=== PATIENT | female | born 2000 | race Caucasian/White ===

== ENCOUNTER 2024-08-01 15:41 | Inpatient (IN) | payer OTHER, SELFPAY ==
[2024-08-01] VITALS (11 sets, daily range): BP systolic 124–148; BP diastolic 73–90; BMI 51.4
[2024-08-01 09:53] LABS: % Basophils 0.6 % (0-2); % Eosinophils 0.2 % (0-6); % Immature Granulocytes 0.3 % (0-0.5); % Neutrophils 85.9 % (42.2-75.2); Absolute Basophils 0.1 10^3/uL (0-0.2); Absolute Lymphocytes 0.9 10^3/uL (1.2-3.4); Absolute Monocytes 0.4 10^3/uL (0.1-0.6); Absolute Neutrophils 8.4 10^3/uL (1.4-6.5); Hematocrit 38.3 % (37.0-47.0); Hemoglobin 13.4 g/dL (12.0-16.0); Mean Corpuscular Hgb 29.8 pg (27.0-31.0); Mean Corpuscular Volume 85.1 fL (81.0-99.0); Mean Platelet Volume 9.1 fL (7.4-10.4); Nucleated Red Blood Cells % 0 %; Platelet Count 224 10^3/uL (130-400); Red Cell Dist. Width 12.2 % (11.5-14.5); White Blood Cell Count 9.7 10^3/uL (4.8-10.8)
[2024-08-01 10:03] LABS: COVID-19 Antigen Negative (Negative)
[2024-08-01 10:19] LABS: ALT (SGPT) 17 U/L (0-35); AST (SGOT) 19 U/L (14-36); Albumin 4.2 g/dl (3.5-5.0); Alkaline Phosphatase 54 U/L (38-126); Blood Urea Nitrogen 8 mg/dl (7-17); Calcium 9.3 mg/dl (8.4-10.2); Carbon Dioxide 19 mmol/L (22-30); Chloride 109 mmol/L (98-107); Estimated Creatinine Clearance > 125 ml/min; Glucose 123 mg/dl (70-99); Potassium 4.2 mmol/L (3.5-5.1); Sodium 138 mmol/L (135-145); Total Bilirubin 0.5 mg/dl (0.2-1.3); Total Protein 7.1 g/dl (6.3-8.2); eGFR > 60.00
--- NOTE | 2024-08-01 10:45 | ED.GENMED ---
History of Present Illness
<Marianela Hunt, LEAN PROCESS DEPLOYMENT CONSULTANT - Last Filed: 08/01/24 17:23>
General
Chief Complaint: Breathing Problem
Source: patient
Exam Limitations: none
Time Seen by Provider: 08/01/24 10:38
Nursing documentation reviewed up to this point in time: agreed with
History of Present Illness
History of Present Illness:
23-year-old female with history of asthma presents for increasing cough and shortness of breath over the past 6 days. She denies fever or chills. She has felt nauseous and did vomit twice, the last emesis was 3 AM today. She denies diarrhea. She
states her coworkers are sick with URI's. She has been taking her Singulair and Albuterol MDI with no improvement. No recent travel.
Past History
<Marianela Hunt, LEAN PROCESS DEPLOYMENT CONSULTANT - Last Filed: 08/01/24 17:23>
Past History
ED Past Medical History: Asthma
ED Past Surgical History: None
Social History
Tobacco: Smoker
Alcohol: None
Personal: Single
Living: with roommate
Employment: Employed
Review of Systems
<Marianela Hunt, LEAN PROCESS DEPLOYMENT CONSULTANT - Last Filed: 08/01/24 17:23>
Review of Systems
Allergies reviewed?: Yes
All Other Systems: ROS reviewed and negative except as documented in HPI and ROS
Constitutional: Denies fever or chills
EENT: Denies sore throat
Respiratory: Reports cough and trouble breathing
Cardiac: Denies chest pain
ABD/GI: Reports nausea and vomiting; Denies abdominal pain or diarrhea
: Denies dysuria or difficulty voiding
Musculoskeletal: Reports no symptoms
Skin: Reports no symptoms
Neurological: Reports no symptoms
Phy Exam
<Marianela Hunt, LEAN PROC[employer] DEPLOYMENT CONSULTANT - Last Filed: 08/01/24 17:23>
Physical Exam
Physical Exam:
GENERAL: No acute distress. A&Ox3.
CONSTITUTIONAL: Afebrile.
EYES: clear, conjunctivae normal
ENMT: moist mucus membranes, Pharynx nl
RESPIRATORY: Regular respirations, nonlabored, lungs with mild scattered expiratory wheezes
CARDIOVASCULAR: Regular rate and rhythm, no murmurs, no rubs.
GI: Soft, nontender, normal BS
MUSCULOSKELETAL: Moves with ease. Well perfused.
SKIN: Warm, dry, pink
PSYCH: Normal mood and affect. Well kept, interactive and appropriate
NEUROLOGIC: Awake, alert and oriented. No focal neurological deficits
Course
<Marianela Hunt, LE[employer] PROC[employer] DEPLOYMENT CONSULTANT - Last Filed: 08/01/24 17:23>
Orders/Labs/Results
Orders:
Orders
08/01/24 09:32
Chest [CR Chest - 2 Views ] Urgent
Comment:
Reason For Exam: cough sob
08/01/24 09:40
COVID-19 Antigen Urgent
Source: Nasal Swab
Complete Blood Count/With Diff Urgent
Comprehensive Metabolic Panel Urgent
HCG, Serum Qualitative Screen Urgent
Comment: ADD ON
Influenza A+B Rapid Molecular Urgent
NAINA Source: Nasal Swab
Specimen Description:
08/01/24 10:45
Ipratropium/Albuterol Sulfate [Duoneb] 3 ml INH R NOW STA
Ondansetron Orally Disint [Zofran Odt (Orally Disintegrating)] 4 mg PO NOW STA
08/01/24 10:46
Dexamethasone [Decadron] 10 mg PO NOW STA
08/01/24 11:53
D-Dimer Urgent
08/01/24 12:44
Add On- LAB Urgent
Tests Added?: serum B-HCG, quanlitative
08/01/24 12:45
CT Chest PE Study Urgent
Comment:
Reason For Exam: sob/hypoxia
08/01/24 14:35
Azithromycin 500 mg/250 ml [Zithromax Infusion] 500 mg in 250 ml IV NOW
Dexamethasone Sod Phosphate [Decadron] 10 mg IV NOW STA
08/01/24 14:51
Admit/Transfer Patient As Directed
Co-Sign Provider:
Level of Care: Inpatient admission
Assign to:: IMU- Intermediate Care
Physician / Group: farrukh
Diagnosis: asthma exacerbation
Reason for Hospitalization: asthma exacerbation
Expected length of stay greater than two midnights?: Yes
ELOS- Estimated Length of Stay in days: 2
I certify the patient meets the requirements for IP care: Yes
Code Status As Directed
Resuscitation Status: Full Code
PRN Pain Medication Management As Directed
May give lesser potent ordered pain med per pt: Yes
preference::
Protocol:: Medication orders for pain may be administered in a
manner that supports deferring to patient preference
when the pt is:
- Requesting an ordered lesser potent pain medication.
Least to most potent pain medications are defined
as: acetaminophen < NSAID < tramadol < opioids
(morphine, oxycodone, hydromorphone).
- Requesting a lesser dose of the same medication IF
ORDERED.
- Requesting a less intrusive route of administration
if both routes are prescribed by the provider (PO <
IV).
08/01/24 15:03
PRN Pain Medication Management As Directed
May give lesser potent ordered pain med per pt: Yes
preference::
Protocol:: Medication orders for pain may be administered in a
manner that supports deferring to patient preference
when the pt is:
- Requesting an ordered lesser potent pain medication.
Least to most potent pain medications are defined
as: acetaminophen < NSAID < tramadol < opioids
(morphine, oxycodone, hydromorphone).
- Requesting a lesser dose of the same medication IF
ORDERED.
- Requesting a less intrusive route of administration
if both routes are prescribed by the provider (PO <
IV).
Abnormal Lab Results
08/01/24 08/01/24
09:40 11:53
Absolute Neuts (auto) 8.4 H 10^3/uL
(1.4-6.5)
Absolute Lymphs (auto) 0.9 L 10^3/uL
(1.2-3.4)
Neutrophils % 85.9 H %
(42.2-75.2)
Lymphocytes % 9.0 L %
(20.5-51.1)
D-Dimer 1.01 H ug/mlFEU
(0.00-0.50)
Chloride 109 H mmol/L
(98-107)
Carbon Dioxide 19 L mmol/L
(22-30)
Glucose 123 H mg/dl
(70-99)
08/01/24 09:40
08/01/24 09:40
Vital Signs
Initial and Last Documented VS:
Initial Vital Signs
Temp Pulse Resp BP Pulse Ox
98.3 F 101 20 148/90 94
08/01/24 09:27 08/01/24 09:27 08/01/24 09:27 08/01/24 09:27 08/01/24 09:27
Last Documented Vital Signs
Temp Pulse Resp BP Pulse Ox
98.3 F 98 26 124/80 96
08/01/24 09:27 08/01/24 15:45 08/01/24 15:45 08/01/24 15:00 08/01/24 16:51
Cellar Supervisor consulted with Physician
Cellar Supervisor consulted with physician?: Yes
Name of Physician Consulted: Ursulah
<Adan Romero MD - Last Filed: 08/01/24 17:28>
Orders/Labs/Results
Orders:
Orders
08/01/24 09:32
Chest [CR Chest - 2 Views ] Urgent
Comment:
Reason For Exam: cough sob
08/01/24 09:40
COVID-19 Antigen Urgent
Source: Nasal Swab
Complete Blood Count/With Diff Urgent
Comprehensive Metabolic Panel Urgent
HCG, Serum Qualitative Screen Urgent
Comment: ADD ON
Influenza A+B Rapid Molecular Urgent
NAINA Source: Nasal Swab
Specimen Description:
08/01/24 10:45
Ipratropium/Albuterol Sulfate [Duoneb] 3 ml INH R NOW STA
Ondansetron Orally Disint [Zofran Odt (Orally Disintegrating)] 4 mg PO NOW STA
08/01/24 10:46
Dexamethasone [Decadron] 10 mg PO NOW STA
08/01/24 11:53
D-Dimer Urgent
08/01/24 12:44
Add On- LAB Urgent
Tests Added?: serum B-HCG, quanlitative
08/01/24 12:45
CT Chest PE Study Urgent
Comment:
Reason For Exam: sob/hypoxia
08/01/24 14:35
Azithromycin 500 mg/250 ml [Zithromax Infusion] 500 mg in 250 ml IV NOW
Dexamethasone Sod Phosphate [Decadron] 10 mg IV NOW STA
08/01/24 14:51
Admit/Transfer Patient As Directed
Co-Sign Provider:
Level of Care: Inpatient admission
Assign to:: IMU- Intermediate Care
Physician / Group: farrukh
Diagnosis: asthma exacerbation
Reason for Hospitalization: asthma exacerbation
Expected length of stay greater than two midnights?: Yes
ELOS- Estimated Length of Stay in days: 2
I certify the patient meets the requirements for IP care: Yes
Code Status As Directed
Resuscitation Status: Full Code
PRN Pain Medication Management As Directed
May give lesser potent ordered pain med per pt: Yes
preference::
Protocol:: Medication orders for pain may be administered in a
manner that supports deferring to patient preference
when the pt is:
- Requesting an ordered lesser potent pain medication.
Least to most potent pain medications are defined
as: acetaminophen < NSAID < tramadol < opioids
(morphine, oxycodone, hydromorphone).
- Requesting a lesser dose of the same medication IF
ORDERED.
- Requesting a less intrusive route of administration
if both routes are prescribed by the provider (PO <
IV).
08/01/24 15:03
PRN Pain Medication Management As Directed
May give lesser potent ordered pain med per pt: Yes
preference::
Protocol:: Medication orders for pain may be administered in a
manner that supports deferring to patient preference
when the pt is:
- Requesting an ordered lesser potent pain medication.
Least to most potent pain medications are defined
as: acetaminophen < NSAID < tramadol < opioids
(morphine, oxycodone, hydromorphone).
- Requesting a lesser dose of the same medication IF
ORDERED.
- Requesting a less intrusive route of administration
if both routes are prescribed by the provider (PO <
IV).
Abnormal Lab Results
08/01/24 08/01/24
09:40 11:53
Absolute Neuts (auto) 8.4 H 10^3/uL
(1.4-6.5)
Absolute Lymphs (auto) 0.9 L 10^3/uL
(1.2-3.4)
Neutrophils % 85.9 H %
(42.2-75.2)
Lymphocytes % 9.0 L %
(20.5-51.1)
D-Dimer 1.01 H ug/mlFEU
(0.00-0.50)
Chloride 109 H mmol/L
(98-107)
Carbon Dioxide 19 L mmol/L
(22-30)
Glucose 123 H mg/dl
(70-99)
08/01/24 09:40
08/01/24 09:40
Vital Signs
Initial and Last Documented VS:
Initial Vital Signs
Temp Pulse Resp BP Pulse Ox
98.3 F 101 20 148/90 94
08/01/24 09:27 08/01/24 09:27 08/01/24 09:27 08/01/24 09:27 08/01/24 09:27
Last Documented Vital Signs
Temp Pulse Resp BP Pulse Ox
98.3 F 98 26 124/80 96
08/01/24 09:27 08/01/24 15:45 08/01/24 15:45 08/01/24 15:00 08/01/24 16:51
<Marianela Hunt, LE[employer] DEPLOYMENT CONSULTANT - Last Filed: 08/01/24 17:23>
MDM/Problems Addressed
Differential Diagnosis Includes:
Asthma, pneumonia, viral URI
MDM/Problems Addressed:
23-year-old female with history of asthma presents for increasing cough and shortness of breath over the past 6 days. She denies fever or chills. She has felt nauseous and did vomit twice, the last emesis was 3 AM today. She denies diarrhea. She
states her coworkers are sick with URI's. She has been taking her Singulair and Albuterol MDI with no improvement. No recent travel.
Afebrile, NAD
10:45 AM:
CBC normal
CMP normal
hCG negative
COVID-negative
Chest x-ray NAD
Patient states she has enough albuterol and Singulair, does not need refills
11:15
Pulse ox 90% after duoneb
Will check d dimer
1:00 PM: D-dimer elevated at 1.01
Patient pulse ox is fluctuating between 94% and is now 88%, placed on nasal O2 2 L/min
HR 110 sinus on monitor
12:30 p.m.
Pulse ox maintaining 88%-92% on 6 liters nasal O2
Resp in and placed on mid flow O2
2:15p.m
PE study neg for PE: IMPRESSION:
No findings to suggest pulmonary emboli within the main, right greater than left main pulmonary arteries.
At least in part as a result of some respiration/motion artifact, evaluation of the more peripheral pulmonary arterial branches, particularly in the lower lobes limited and small more peripheral pulmonary emboli cannot be excluded.
Overall prominent pulmonary interstitium with nodular opacities as well as some bilateral minor groundglass opacities most likely inflammatory/infectious.
Mild indeterminate mediastinal and bilateral hilar lymphadenopathy, most prominent left hilum.
No pneumothorax or pleural effusion.
Cannot exclude small anterior pericardial effusion.
2:40 p.m.
Plan: Admit: Bronchitis/asthma, acute resp failure with hypoxemia
Hospitalist notified of admission
Pulse ox 93% on 8L mid flow
Chronic conditions affecting care: Asthma
<Marianela Hunt [employer] DEPLOYMENT CONSULTANT - Last Filed: 08/01/24 17:23>
*Pulse Oximetry
Patient hypoxic: yes (Pulse ox 94% RA initially, vacillating between 94% and 88%, now 88%, O2 2 L NC applied)
*[facility] Interpretation
Rate: tachycardiac
Interpretation: normal
Heart Rate: 110
Rhythm: sinus
*Critical Care Note
Total Time (30-74mins, 75-104mins- exclusive of procedures): Not Applicable
ED Attending Note
<Marianela Hunt [employer] DEPLOYMENT CONSULTANT - Last Filed: 08/01/24 17:23>
-
Portions of this chart may have been created with voice recognition software.� Occasional wrong word or��sound alike� substitutions may have occurred due to the inherent limitations of voice recognition software.
<Adan Romero MD - Last Filed: 08/01/24 17:28>
ED Attending Note
Patient seen and examined by attending physician: Yes
ED Attending Note:
Patient with history of asthma, presents ED secondary to 6-day history of persistent cough and shortness of breath, despite using inhaler at home. Patient was evaluated urgent care center and subsequent referred to ED for evaluation secondary to
continued work of breathing. Denies chest pain. Denies diarrhea, but does report multiple episodes of vomiting. Patient states that there are number of people at work currently with URI symptoms. No recent travel or surgery. Denies pain.
Denies leg pain or swelling.
Physical Exam
General: mild distress, not acutely ill. afebrile
Head: nc/at. eomi
Neck: supple. normal range of motion.
Heart: s1/s2 regular rate and rhythm.
Lungs: mild respiratory distress. diminished breath sounds bilaterally
Abdomen: normal bowel sounds. not tender.
Neuro: alert and oriented x 3. no focal neurological deficits
Skin: no rash
Psychiatric: well kept. interactive and cooperative
Extremities: no edema. no calf tenderness.
During observation, patient noted to continue to experience tachypnea with desaturation despite supplemental oxygen. As such, decision made to place patient on mid flow oxygen and D-dimer ordered.
D-dimer mildly elevated. CT PE study ordered, which did not reveal acute pulm embolism, but diffuse interstitial inflammatory findings. History and exam likely consistent with asthmatic bronchitis causing hypoxia. As such, patient will be
admitted for further eval and treatment. IV antibiotics, IV Zithromax will be started.
Discharge Plan
Departure
Patient Disposition: Admit
Date of Disposition: 08/01/24
Time of Disposition: 14:35
Admit to: IMU
Presentation/result/management discussed w/ accepting MD/DO: Hospitalist
Condition: Fair
Discharge Problem:
Acute bronchitis, Acute respiratory failure with hypoxemia
Interventions
Interventions:
*Risk Screen - Suicide Last Done: 08/01/24 11:16
*General Assessment Last Done: 08/01/24 09:30
*Neglect/Abuse Screening Last Done: 08/01/24 09:30
*ED- Fall Risk Assessment Last Done: 08/01/24 11:14
*ED COVID-19 Vaccine History Last Done: 08/01/24 11:14
ED- Cardiac Assessment Last Done: 08/01/24 11:14
ED- Pulmonary Assessment Last Done: 08/01/24 11:14
[2024-08-01] MEDS: DUONEB 3 ML INH ×2 (10:55→19:37)
[2024-08-01] MEDS: ZOFRAN ODT (ORALLY DISINTEGRATING) 4 MG PO (10:55)
[2024-08-01] MEDS: DECADRON 10 MG PO (10:55)
[2024-08-01 12:15] LABS: D-Dimer 1.01 ug/mlFEU (0.00-0.50)
[2024-08-01 13:33] LABS: HCG, Serum Qualitative Screen Negative
[2024-08-01] MEDS: DECADRON 10 MG IV (14:45)
[2024-08-01] MEDS: ZITHROMAX INFUSION 250 IV (14:45)
--- NOTE | 2024-08-01 14:54 | HPS.HSE ---
Addendum entered and electronically signed by Felipe Mcintosh MD 08/01/24 15:04:
Patient with history of anxiety/depression. Continue home medications.
Patient currently on 15 L mid flow and may require high flow.
Original Note:
Family Physician
-
Family Physician: KEILA Méndez
Chief Complaint
-
shortness of breath
History of Present Illness
23-year-old female past medical history of asthma presenting with cough and shortness of breath over the past 6 days. She had coworkers with upper respiratory symptoms. Patient herself has some sore throat and bodyaches and chills early on during
the course of her symptoms. She had a lot of wheezing. She had 2 episodes of vomiting most recently this morning. Denies diarrhea.
She has been taking Singulair and albuterol MDI without improvement. No recent travel.
Denies smoking or alcohol use.
Medical History
Past Medical History
Past Medical History: Reports Other (asthma )
Past Surgical History: Reports None
Social History
Tobacco: Non-smoker
Alcohol: None
Drug: None
Family History
Family History: Not pertinent
Allergies / Home Medications
Allergies reflects when Allergies were last updated in [facility].
Home Medications with original date entered in [employer]
Allergy/Medication List:
Allergies
Allergy/AdvReac Type Severity Reaction Status Date / Time
amoxicillin (Amoxicillin) Allergy 'little Verified 12/06/12 18:13
bit' of a
rash
Home Medications
albuterol sulfate 2.5 mg/3 mL (0.083 %) solution for nebulization 3 ml inhalation PRN SOB 11/05/08
albuterol sulfate 90 mcg/actuation aerosol inhaler 8.5 gm IH PRN PRN SOB 11/05/08
fluticasone propionate 110 mcg/actuation HFA aerosol inhaler (Flovent) 2 puff inhalation DAILYPRN PRN SOB and allergy symptoms 11/05/08
Review of Systems
-
History Source: Patient
A 12 point ROS was completed and negative except as noted: Yes
Constitutional: Reports No Symptoms
EENT: Reports No Symptoms
Respiratory: Reports See HPI
Cardiac: Reports No Symptoms
Abdomen/GI: Reports No Symptoms
: Reports No Symptoms
Musculoskeletal: Reports No Symptoms
Skin: Reports No Symptoms
Neurological: Reports No Symptoms
Endocrine: Reports No Symptoms
Hematologic/Lymphatic: Reports No Symptoms
Psych: Reports No Symptoms
Physical Exam
Vital Signs
Vital Signs
Temp Pulse Resp BP Pulse Ox
98.3 F 98 23 129/83 90
08/01/24 09:27 08/01/24 14:30 08/01/24 14:30 08/01/24 14:06 08/01/24 14:30
Physical Exam
General: Well Developed, Well Nourished and No Apparent Distress
HEENT: NormoCephalic, Moist mucous membranes and Atraumatic
Respiratory: Clear
Cardiac: S1/S2 and Regular Rhythm; No Murmur or Rub
GI: Soft, Non Tender, Non Distended and Normal Bowel Sounds; No Organomegaly
Rectal: Deferred by Provider
Musculoskeletal: No Clubbing, No Cyanosis and No Edema
Skin: No Rash
Neuro: Nonfocal/grossly intact
Laboratory Results
-
08/01/24 09:40
08/01/24 09:40
Laboratory Results
Total Bilirubin 0.5 mg/dl (0.2-1.3) 08/01/24 09:40
AST 19 U/L (14-36) 08/01/24 09:40
ALT 17 U/L (0-35) 08/01/24 09:40
Alkaline Phosphatase 54 U/L (38-126) 06/15/25 09:40
Data Reviewed
-
Lab Data: Labs Reviewed by me
Old Records: Reviewed
Impression/Plan
-
IMPRESSION:
PLAN:
# Acute asthma exacerbation secondary to viral URI
-CT PE shows no pulmonary embolism, prominent pulmonary interstitium with nodular opacities as well as bilateral minor groundglass opacities likely inflammatory/infectious
- DuoNebs every 6 hours
- Dexamethasone 4 mg every 12
- Continue Singulair
# Bilateral nodular opacities likely viral pneumonia
-COVID and influenza negative
- Ceftriaxone/azithromycin
Full code
DVT prophylaxis�heparin
Regular diet
--- NOTE | 2024-08-01 18:47 | PTCARENOTE ---
Admitted to 3354, IMU monitors intact. SR /ST 90s 96% on HFO2 45L/ 60%. PO diet given.
[2024-08-01] MEDS: DUONEB INH (19:37)
[2024-08-01] MEDS: HEPARIN 5000 UNITS SC (20:05)
[2024-08-01] MEDS: ROCEPHIN 1000 MG IV (20:05)
[2024-08-01] MEDS: STERILE WATER FOR INJECTION 10 ML IV (20:05)
[2024-08-01] MEDS: BUSPAR PO (20:06)
--- NOTE | 2024-08-01 20:27 | PTCARENOTE ---
Received pt at change of shift. Admission completed. AAOx3. HFNC in place at 45L 60%. Lungs with insp/exp wheeze and diminished throughout. Dyspneic at rest with labored respirations. Pt very diaphoretic but offers no complaints of
dizziness/nausea. BP 125/90 HR 88 pulse ox 96%. Call deal within reach.
[2024-08-01] MEDS: BUSPAR 10 MG PO (21:56)
[2024-08-01] MEDS: SINGULAIR 10 MG PO (21:56)
[2024-08-01] MEDS: NON-FORMULARY ITEM 1 TABLET PO (22:28)
[2024-08-01] MEDS: MORPHINE SULFATE 2 MG IV (23:10)
--- NOTE | 2024-08-01 23:13 | PTCARENOTE ---
Pt WOB significantly increased and pulse ox dropped to 88%. RT at bedside and increased pt high flow to 100%. Notified CASH REGISTER BALANCER. 1x dose of Morphine ordered and administered for WOB (see MAR).
[2024-08-02] VITALS (11 sets, daily range): BP systolic 115–144; BP diastolic 66–98
[2024-08-02] MEDS: DECADRON 4 MG IV (05:34)
[2024-08-02 06:08] LABS: % Basophils 0.2 % (0-2); % Immature Granulocytes 0.5 % (0-0.5); % Lymphocytes 7.3 % (20.5-51.1); % Monocytes 4.2 % (1.7-9.3); % Neutrophils 87.8 % (42.2-75.2); Absolute Immature Granulocytes 0.1 10^3/uL (0-0.05); Absolute Lymphocytes 1.4 10^3/uL (1.2-3.4); Absolute Monocytes 0.8 10^3/uL (0.1-0.6); Absolute Neutrophils 16.4 10^3/uL (1.4-6.5); Hematocrit 39.5 % (37.0-47.0); Hemoglobin 13.6 g/dL (12.0-16.0); Mean Corp Hgb Conc. 34.4 g/dL (33.0-37.0); Mean Corpuscular Hgb 29.6 pg (27.0-31.0); Mean Corpuscular Volume 85.9 fL (81.0-99.0); Mean Platelet Volume 9.6 fL (7.4-10.4); Nucleated Red Blood Cells % 0 %; Platelet Count 247 10^3/uL (130-400); Red Cell Dist. Width 12.5 % (11.5-14.5); White Blood Cell Count 18.7 10^3/uL (4.8-10.8)
[2024-08-02 06:34] LABS: ALT (SGPT) 17 U/L (0-35); AST (SGOT) 21 U/L (14-36); Albumin 4.3 g/dl (3.5-5.0); Alkaline Phosphatase 48 U/L (38-126); Blood Urea Nitrogen 10 mg/dl (7-17); Calcium 9.4 mg/dl (8.4-10.2); Carbon Dioxide 20 mmol/L (22-30); Chloride 108 mmol/L (98-107); Estimated Creatinine Clearance > 125 ml/min; Glucose 141 mg/dl (70-99); Potassium 4.3 mmol/L (3.5-5.1); Sodium 139 mmol/L (135-145); Total Bilirubin 0.5 mg/dl (0.2-1.3); Total Protein 7.4 g/dl (6.3-8.2); eGFR > 60.00
[2024-08-02] MEDS: DUONEB 3 ML INH ×4 (07:41→19:51)
--- NOTE | 2024-08-02 08:51 | CON.PUL ---
Consultation
Consultation Request
Date/Time Consultation Requested: 08/02/2024
Date/Time Consultation Performed: 08/02/2024
Requesting Provider: Jose C Zamorano
Performing Provider: Laure Grossman
Reason for Consultation: Asthma
Medical History
-
Chief Complaint: Shortness of breath
History of Present Illness:
Patient is a 23-year-old female with known history of asthma who had presented to the hospital with cough and shortness of breath going on for almost 1 week. Patient does report some sick contacts with upper respiratory tract symptoms. Her
symptoms started with some sore throat and later progressed to cough and wheezing. She also had some posttussive vomiting. Patient at home takes albuterol as needed and Singulair and she has been using albuterol frequently without much improvement.
Patient reports known history of asthma since childhood. Typical triggers appear to be nighttime, cold weather, exposure to pollen and other animals 4. Patient used to be on Advair in the past and lately has not been on any inhaled corticosteroid
and uses montelukast at night and as needed albuterol only.
Past Medical History: Reports Other (asthma )
Past Surgical History: Reports None
Social History
Tobacco: Non-smoker
Alcohol: None
Drug: None
Family History
Family History: Not pertinent
Allergies / Home Medications
Allergies
Allergy/AdvReac Type Severity Reaction Status Date / Time
amoxicillin (Amoxicillin) Allergy 'little Verified 12/06/12 18:13
bit' of a
rash
Home Medications
�Medication �Instructions �Recorded �Confirmed �Last Taken �Type
albuterol sulfate 90 mcg/actuation 2 inh inhalation R Q4HPRN PRN sob 08/01/24 08/01/24 08/01/24 History
aerosol inhaler
bupropion HCl 300 mg 24 hr tablet, 300 mg PO DAILY Mental 08/01/24 08/01/24 07/31/24 History
extended release Health/Anxiety
buspirone 10 mg tablet 10 mg PO TID 08/01/24 08/01/24 07/31/24 History
fluoxetine 40 mg capsule 40 mg PO DAILY Mental 08/01/24 08/01/24 07/31/24 History
Health/Anxiety
montelukast 10 mg tablet 10 mg PO DAILY Allergies 08/01/24 08/01/24 07/31/24 History
norgestimate 0.25 mg-ethinyl 1 tab PO DAILY 08/01/24 08/01/24 07/31/24 History
estradiol 0.035 mg tablet
(Estarylla)
Review of Systems
-
Hematologic/Lymphatic: Other (All 14 systems reviewed and negative except as stated above in the history of present illness.)
Vitals / Labs / Diagnostic Testing
Vital Signs
Temp Pulse Resp BP Pulse Ox
99.0 F 87 25 122/70 96
08/02/24 03:55 08/02/24 07:41 08/02/24 07:41 08/02/24 04:00 08/02/24 07:41
Lab Data
08/02/24 05:40
08/02/24 05:40
Microbiology
08/01/24 09:40 Nasal Swab Influenza Types A & B (ROYA) - Final
Negative for Influenza A & B, NAAT
Negative results must be combined with clinical observations
and patient history.
Nucleic Acid Amplification test (NAAT)performed on the
[employer] platform.
Diagnostic Testing:
Physical Exam
-
HEENT: Normocephalic
Cardiovascular: S1/S2
Respiratory: Wheeze (Bilateral mild end expiratory wheezing.) and Non-Labored Respirations
GI: Soft
Neurology: Awake and Oriented
Skin: Warm
General: Comfortable
Assessment
-
#1. Acute asthma exacerbation.
- Appears to have high Th2 asthma with elevated eosinophil count noted in the past. Eosinophil count, 0-600. Patient has not been on any inhaled corticosteroid at home lately
- Continue DuoNeb 4 times daily scheduled, add budesonide nebulized twice daily. IV Solu-Medrol 60 mg once at 5 PM today, switch to prednisone daily starting tomorrow morning
- Continue montelukast. Patient will need to be discharged on inhaled corticosteroid to prevent future flare.
- Recommend outpatient follow-up with pulmonary clinic for further workup and management.
#2. Multifocal nodular opacities with some groundglass changes, suspect multifocal pneumonia
- Influenza A, B, COVID-19 screen negative.
- Also noted mild mediastinal and hilar lymphadenopathy again likely reactive
- Follow-up on cultures, continue ceftriaxone and azithromycin for community-acquired pneumonia
- In view of vomiting earlier, these CT changes could be suggestive of aspiration also.
#3. Acute hypoxic respiratory failure.
- Secondary to above
- Currently on high flow nasal cannula, 75% FiO2, 45 L flow.
- Pulmonary embolism ruled out
- Continue to wean oxygen, keep saturations above 90%
#4. High pretest probability of underlying obstructive sleep apnea.
- Patient's BMI is 51, reported snoring at night and excessive fatigue during daytime.
- Will pursue outpatient sleep study for further evaluation
DVT prophylaxis, subcu heparin.
Total time spent on this consultation/encounter __65__ minutes which includes review of history, physical exam, medications, laboratory data, personal review of imaging, extensive review of outpatient records, discussion with care team and
respiratory therapy.
Data:
CT Chest 07/2024: No findings to suggest pulmonary emboli within the main, right greater than left main pulmonary arteries.
At least in part as a result of some respiration/motion artifact, evaluation of the more peripheral pulmonary arterial branches, particularly in the lower lobes limited and small more peripheral pulmonary emboli cannot be excluded.
Overall prominent pulmonary interstitium with nodular opacities as well as some bilateral minor groundglass opacities most likely inflammatory/infectious.
Mild indeterminate mediastinal and bilateral hilar lymphadenopathy, most prominent left hilum.
No pneumothorax or pleural effusion.
Cannot exclude small anterior pericardial effusion.
[2024-08-02] MEDS: PROZAC 40 MG PO (09:02)
[2024-08-02] MEDS: BUSPAR 10 MG PO ×3 (09:03→20:08)
[2024-08-02] MEDS: HEPARIN 5000 UNITS SC ×3 (09:03→23:40)
[2024-08-02] MEDS: MUCINEX 1200 MG PO ×2 (09:07→20:08)
[2024-08-02] MEDS: PULMICORT 0.5 MG INH ×2 (09:12→19:51)
--- NOTE | 2024-08-02 09:48 | W.PN.HOSP.TC ---
Today's Communication/Plan
-
see outlined plan below
Assessment / Plan
Assessment / Plan
Assessment:
Acute hypoxic respiratory failure
- on hi-flow
- wean as able
- pulm following
Acute asthma exacerbation
- continue IV steroids
- nebs QID and prn
- steroid inhalers BID
- continue Singulair
- OP Pulm f/u
Multifocal pneumonia mild mediastinal and hilar lymphadenopathy likely reactive
- Flu/Covid negative
- continue Rocephin/Azithromycin, day 2 for CAP coverage
Probable KAREN
- OP sleep study
Anxiety/Depression - continue home meds
DVT ppx: SC Heparin
Code: Full
Anticipated Discharge: > 48 hours
Subjective/Interval History
-
Date of Service: August 02, 2024
on Hi-sunitha
reports some improvement in wheezing
Objective Data
-
Labs:
Laboratory Results
08/02/24
05:40
WBC 18.7 H
Hgb 13.6
Hct 39.5
Plt Count 247
Sodium 139
Potassium 4.3
Chloride 108 H
Carbon Dioxide 20 L
BUN 10
Creatinine 0.6
Glucose 141 H
Calcium 9.4
Total Bilirubin 0.5
AST 21
ALT 17
Alkaline Phosphatase 48
Vital Signs:
Vital Signs
Temp Pulse Resp BP Pulse Ox
98.5 F 101 27 127/72 95
08/02/24 07:45 08/02/24 08:00 08/02/24 08:00 08/02/24 08:00 08/02/24 08:00
Physical Exam
-
General: No Apparent Distress
HEENT: Normocephalic and Atraumatic
Respiratory: Wheezes and Other (chest tightness)
Cardiac: Regular Rhythm and S1/S2
GI: Soft
Musculoskeletal: No Edema
Neuro: AO x 3
Psych: Calm
Data Reviewed
-
Total Time Spent with Patient (in minutes): 45
Labs: Labs Reviewed by me
--- NOTE | 2024-08-02 12:30 | CM ---
Patient with Hx asthma with Dx Acute asthma exacerbation, suspect pneumonia. High flow O2. Receiving IV Abx, IV Steroids. Per nurse; A/O, mobility - self.
Met with patient and her SO Shaheen;
the patient resides with Shaheen and 2 room mates in a 2 story townhouse with no outside steps, and 8 + 8 stairs to 2nd floor.
She was independent in ADLs and ambulation.
The patient has no DME or prior VN.
PCP - Noble Ray
Pharmacy - [facility]
Plan watch for respiratory needs at d/c.
Plan home.
[2024-08-02] MEDS: ZITHROMAX INFUSION 250 IV (13:48)
[2024-08-02] MEDS: SOLU-MEDROL PF 60 MG IV (17:08)
[2024-08-02] MEDS: ROCEPHIN 1000 MG IV (17:09)
[2024-08-02] MEDS: STERILE WATER FOR INJECTION 10 ML IV (17:09)
--- NOTE | 2024-08-02 19:20 | PTCARENOTE ---
Remains on high flow however RT weaned to 50L / 60% slowly today. Harsh cough at times- coughed up scant brownish phleghm with thin clear. OOB this pm feels good sitting up.
[2024-08-02] MEDS: SINGULAIR 10 MG PO (20:08)
[2024-08-02] MEDS: NON-FORMULARY ITEM 1 TABLET PO (21:26)
--- NOTE | 2024-08-02 21:42 | PTCARENOTE ---
Patient aaox3 since start of shift, able to make needs known. Denies pain. RN assist x1 oob to bsc, gait steady. Patient remains on Hi flow 50L at 60%, pox 96%. Lung sounds diminished throughout, continues with fine inspiratory and expiratory
wheeze, faint. Call deal within reach, will continue to monitor patient closely.
[2024-08-03] VITALS (11 sets, daily range): BP systolic 106–131; BP diastolic 58–76
--- NOTE | 2024-08-03 00:17 | W.PN.UPDATE ---
Update Note
Progress Note Update
SUPPLY ANALYST called. RN noted abnormal rhythm on the monitor, checked on patient. Patient without any new complaints.
Patient seen and evaluated. States she was turning to her right side before the RN came in to the room to check on her. She is with out any chest pain, palpitations, shortness of breath.
EKG noted. will do labs, stable VS
Artifact noted on the monitor.
--- NOTE | 2024-08-03 00:25 | RR ---
A Rapid Response was called on this patient, please see Rapid Response form.
--- NOTE | 2024-08-03 00:25 | PTCARENOTE ---
Rapid response called d/to cardiac rhythm. Cardiac rhythm appeared to be vfib, but with qrs complexes. RN to room to assess, patient aao x3, denies chest pain or palpitations. Hi Flow clip removed from patients gown, no other devices touching leads,
rhythm sustained. RR team to room to assess, patient returned to NSR, EKG obtained. Labs ordered and obtained. Will continue to monitor patient closely.
[2024-08-03 00:33] LABS: % Basophils 0.1 % (0-2); % Immature Granulocytes 0.4 % (0-0.5); % Lymphocytes 10.4 % (20.5-51.1); % Monocytes 2.9 % (1.7-9.3); % Neutrophils 86.2 % (42.2-75.2); Absolute Immature Granulocytes 0.1 10^3/uL (0-0.05); Absolute Lymphocytes 1.4 10^3/uL (1.2-3.4); Absolute Monocytes 0.4 10^3/uL (0.1-0.6); Absolute Neutrophils 11.7 10^3/uL (1.4-6.5); Hematocrit 40.8 % (37.0-47.0); Hemoglobin 14.1 g/dL (12.0-16.0); Mean Corp Hgb Conc. 34.6 g/dL (33.0-37.0); Mean Corpuscular Hgb 29.8 pg (27.0-31.0); Mean Corpuscular Volume 86.3 fL (81.0-99.0); Mean Platelet Volume 9.6 fL (7.4-10.4); Nucleated Red Blood Cells % 0 %; Platelet Count 257 10^3/uL (130-400); Red Blood Cell Count 4.73 10^6/uL (4.20-5.40); Red Cell Dist. Width 12.5 % (11.5-14.5); White Blood Cell Count 13.5 10^3/uL (4.8-10.8)
[2024-08-03 00:34] LABS: Blood Urea Nitrogen 12 mg/dl (7-17); Calcium 9.3 mg/dl (8.4-10.2); Carbon Dioxide 23 mmol/L (22-30); Chloride 108 mmol/L (98-107); Estimated Creatinine Clearance > 125 ml/min; Glucose 153 mg/dl (70-99); Magnesium 2.4 mg/dl (1.6-2.3); Potassium 4.3 mmol/L (3.5-5.1); Sodium 138 mmol/L (135-145); eGFR > 60.00
[2024-08-03] MEDS: DUONEB 3 ML INH ×6 (04:18→22:11)
[2024-08-03 05:31] LABS: Hematocrit 39.9 % (37.0-47.0); Hemoglobin 13.6 g/dL (12.0-16.0); Mean Corp Hgb Conc. 34.1 g/dL (33.0-37.0); Mean Corpuscular Hgb 29.4 pg (27.0-31.0); Mean Corpuscular Volume 86.2 fL (81.0-99.0); Mean Platelet Volume 9.5 fL (7.4-10.4); Platelet Count 239 10^3/uL (130-400); Red Blood Cell Count 4.63 10^6/uL (4.20-5.40); Red Cell Dist. Width 12.5 % (11.5-14.5); White Blood Cell Count 12.7 10^3/uL (4.8-10.8)
[2024-08-03 05:49] LABS: Blood Urea Nitrogen 13 mg/dl (7-17); Calcium 9.2 mg/dl (8.4-10.2); Carbon Dioxide 26 mmol/L (22-30); Chloride 107 mmol/L (98-107); Estimated Creatinine Clearance > 125 ml/min; Glucose 140 mg/dl (70-99); Potassium 4.3 mmol/L (3.5-5.1); Sodium 141 mmol/L (135-145); eGFR > 60.00
[2024-08-03] MEDS: PULMICORT 0.5 MG INH ×2 (07:14→19:26)
[2024-08-03] MEDS: BUSPAR 10 MG PO ×3 (09:24→20:07)
[2024-08-03] MEDS: MUCINEX 1200 MG PO ×2 (09:25→20:07)
[2024-08-03] MEDS: PROZAC 40 MG PO (09:25)
[2024-08-03] MEDS: HEPARIN 5000 UNITS SC ×3 (09:25→23:16)
[2024-08-03] MEDS: DELTASONE 60 MG PO (09:25)
[2024-08-03] MEDS: ZITHROMAX INFUSION 250 IV (11:11)
--- NOTE | 2024-08-03 11:49 | W.PN.PUL3 ---
Today's Communication / Plan
-
- Switch to prednisone 40 mg daily starting 08/04
- Continue to wean oxygen, anticipate transition to mid flow oxygen cannula today
- Discharge planning
Assessment
-
Patient is a 23-year-old female with known history of asthma who had presented to the hospital with cough and shortness of breath going on for almost 1 week. Patient does report some sick contacts with upper respiratory tract symptoms. Her
symptoms started with some sore throat and later progressed to cough and wheezing. She also had some posttussive vomiting. Patient at home takes albuterol as needed and Singulair and she has been using albuterol frequently without much improvement.
Patient reports known history of asthma since childhood. Typical triggers appear to be nighttime, cold weather, exposure to pollen and other animals 4. Patient used to be on Advair in the past and lately has not been on any inhaled corticosteroid
and uses montelukast at night and as needed albuterol only.
#1. Acute asthma exacerbation.
- Appears to have high Th2 asthma with elevated eosinophil count noted in the past. Eosinophil count, 0-600. Patient has not been on any inhaled corticosteroid at home lately
- Continue DuoNeb 4 times daily scheduled, continue budesonide nebulized twice daily. Lower steroid dose further, 40 mg daily starting 08/04.
- Continue montelukast. Patient will need to be discharged on inhaled corticosteroid to prevent future flare.
- Recommend outpatient follow-up with pulmonary clinic for further workup and management.
#2. Multifocal nodular opacities with some groundglass changes, suspect multifocal pneumonia
- Influenza A, B, COVID-19 screen negative.
- Also noted mild mediastinal and hilar lymphadenopathy again likely reactive
- Follow-up on cultures, continue ceftriaxone and azithromycin for community-acquired pneumonia
- In view of vomiting earlier, these CT changes could be suggestive of aspiration also.
#3. Acute hypoxic respiratory failure.
- Secondary to above
- Decreasing oxygen requirement, down to 50% FiO2 on high flow nasal cannula. Anticipate transition to mid flow today.
- Pulmonary embolism ruled out
- Continue to wean oxygen, keep saturations above 90%
#4. High pretest probability of underlying obstructive sleep apnea.
- Patient's BMI is 51, reported snoring at night and excessive fatigue during daytime.
- Will pursue outpatient sleep study for further evaluation
DVT prophylaxis, subcu heparin.
Total time spent on this consultation/encounter __42__ minutes which includes review of history, physical exam, medications, laboratory data, personal review of imaging, extensive review of outpatient records, discussion with care team and
respiratory therapy.
Data:
CT Chest 07/2024: No findings to suggest pulmonary emboli within the main, right greater than left main pulmonary arteries.
At least in part as a result of some respiration/motion artifact, evaluation of the more peripheral pulmonary arterial branches, particularly in the lower lobes limited and small more peripheral pulmonary emboli cannot be excluded.
Overall prominent pulmonary interstitium with nodular opacities as well as some bilateral minor groundglass opacities most likely inflammatory/infectious.
Mild indeterminate mediastinal and bilateral hilar lymphadenopathy, most prominent left hilum.
No pneumothorax or pleural effusion.
Cannot exclude small anterior pericardial effusion.
Subjective Data
-
Date of Service:
Date of Service: August 03, 2024
Subjective:
Patient reports clinically improving, oxygen requirement decreasing.
Review of Systems
Genitourinary: Other (No new pulmonary symptoms reported)
Objective Data
Data Reviewed
Vital Signs / I&O / Oxygen:
Vital Signs
Temp Pulse Resp BP Pulse Ox
98 F 92 22 117/73 93
08/03/24 07:45 08/03/24 11:20 08/03/24 11:20 08/03/24 10:00 08/03/24 11:36
Intake and Output
08/02/24 08/03/24 08/04/24
06:59 06:59 06:59
Intake Total 1450 / 1450 720 / 720
Balance 1450 / 1450 720 / 720
SaO2 93
Nasal Cannula flow liters per 50
minute
Physical Exam
General: Comfortable
HEENT: Normocephalic
Cardiovascular: S1-S2
Respiratory: Clear and Wheeze (Minimal end expiratory wheezing left, significant improvement overall.)
GI: Soft and Non Distended
Neurology: Awake and Alert
Skin: Warm
Labs/Micro/Reports
Lab Data
08/03/24 05:14
08/03/24 05:14
Microbiology
08/01/24 09:40 Nasal Swab Influenza Types A & B (ROYA) - Final
Negative for Influenza A & B, NAAT
Negative results must be combined with clinical observations
and patient history.
Nucleic Acid Amplification test (NAAT)performed on the
[employer] platform.
--- NOTE | 2024-08-03 12:03 | PTCARENOTE ---
Patient out of bed to chair, weaned to mid flow 15 liters. Patient has some wheezing, dyspnea on exertion. Ate a good breakfast, denying pain when asked. Deep breathing and coughing completed, incentive spirometry. Patient stating that she feels
better today.
--- NOTE | 2024-08-03 14:40 | W.PN.HOSP.TC ---
Today's Communication/Plan
-
wean steroids
wean O2
Assessment / Plan
Assessment / Plan
Assessment:
Acute hypoxic respiratory failure
- originally on Hi-Catarino, now on mid-flow
- wean as able
- pulm following
Acute asthma exacerbation
- continue IV steroids; possible PO steroids tomorrow
- nebs QID and prn
- steroid inhalers BID
- continue Singulair
- OP Pulm f/u
Multifocal pneumonia mild mediastinal and hilar lymphadenopathy likely reactive
- Flu/Covid negative
- continue Rocephin/Azithromycin, day 3 for CAP coverage
Probable KAREN
- OP sleep study
Anxiety/Depression - continue home meds
DVT ppx: SC Heparin
Code: Full
Anticipated Discharge: > 48 hours
Subjective/Interval History
-
Date of Service: August 03, 2024
Patient reports clinically improving, oxygen requirement decreasing.
denies SOB or CP
Objective Data
-
Labs:
Laboratory Results
08/03/24
05:14
WBC 12.7 H
Hgb 13.6
Hct 39.9
Plt Count 239
Sodium 141
Potassium 4.3
Chloride 107
Carbon Dioxide 26
BUN 13
Creatinine 0.7
Glucose 140 H
Calcium 9.2
Vital Signs:
Vital Signs
Temp Pulse Resp BP Pulse Ox
98.4 F 75 16 108/69 94
08/03/24 11:45 08/03/24 14:00 08/03/24 14:00 08/03/24 12:00 08/03/24 14:00
I&O
08/02/24 08/03/24 08/04/24
06:59 06:59 06:59
Intake Total 1450 / 1450 720 / 720
Output Total 550 / 550
Balance 1450 / 1450 170 / 170
Physical Exam
-
General: No Apparent Distress
HEENT: Normocephalic and Atraumatic
Respiratory: Negative Wheezes
Cardiac: Regular Rhythm and S1/S2
GI: Soft and Nontender
Genito-urinary: No Costovertebral Tender
Neuro: AO x 3
Hematologic / Lymphatic: No Lymphadenopathy
Psych: Calm
Data Reviewed
-
Total Time Spent with Patient (in minutes): 45
Labs: Labs Reviewed by me
[2024-08-03] MEDS: SENOKOT 8.6 MG PO ×2 (16:49→20:07)
[2024-08-03] MEDS: ROCEPHIN 1000 MG IV (16:50)
[2024-08-03] MEDS: STERILE WATER FOR INJECTION 10 ML IV (16:50)
[2024-08-03] MEDS: SINGULAIR 10 MG PO (20:07)
[2024-08-03] MEDS: NON-FORMULARY ITEM 1 TABLET PO (22:17)
[2024-08-04] VITALS (12 sets, daily range): BP systolic 109–136; BP diastolic 70–91
--- NOTE | 2024-08-04 00:08 | PTCARENOTE ---
Patient aao x3 since start of shift, able to make needs known. Continues on 15L Midflow, pox 94%. Lung sounds with continued fine inspiratory and expiratory wheezing, however improved from previous day. Denies pain, call deal within reach, will
continue to monitor patient closely.
--- NOTE | 2024-08-04 04:33 | DOWNTIME ---
Addendum entered and electronically signed by Elke Grossman RN 08/04/24 14:23:
Correction: Downtime was 08/04/2024 from 0100 to 08/04/2024 at 0415
Original Note:
There was a [employer] Downtime on 08/03/2024 from 0100 to 08/04/2024 at 0415. Downtime documentation of patient's care, including medication administrations, has been reconciled in the electronic record per guidelines. Refer to the
patient's paper chart under the miscellaneous tab to see printed paper medication records and downtime forms.
[2024-08-04 05:53] LABS: Hematocrit 39.9 % (37.0-47.0); Hemoglobin 13.7 g/dL (12.0-16.0); Mean Corp Hgb Conc. 34.3 g/dL (33.0-37.0); Mean Corpuscular Hgb 29.7 pg (27.0-31.0); Mean Corpuscular Volume 86.6 fL (81.0-99.0); Mean Platelet Volume 9.2 fL (7.4-10.4); Platelet Count 239 10^3/uL (130-400); Red Blood Cell Count 4.61 10^6/uL (4.20-5.40); Red Cell Dist. Width 12.6 % (11.5-14.5); White Blood Cell Count 10.1 10^3/uL (4.8-10.8)
[2024-08-04 06:20] LABS: Blood Urea Nitrogen 17 mg/dl (7-17); Calcium 9.1 mg/dl (8.4-10.2); Carbon Dioxide 25 mmol/L (22-30); Chloride 109 mmol/L (98-107); Estimated Creatinine Clearance > 125 ml/min; Glucose 88 mg/dl (70-99); Sodium 141 mmol/L (135-145); eGFR > 60.00
[2024-08-04] MEDS: PULMICORT 0.5 MG INH ×2 (07:14→19:21)
[2024-08-04] MEDS: DUONEB 3 ML INH ×5 (07:14→22:25)
--- NOTE | 2024-08-04 07:45 | PTCARENOTE ---
Pt sleeping No distress on 12 l mid flow at this time POX 92%
--- NOTE | 2024-08-04 09:01 | PTCARENOTE ---
Pt sleeping VSS.
[2024-08-04] MEDS: PROZAC 40 MG PO (09:25)
[2024-08-04] MEDS: SENOKOT 8.6 MG PO ×2 (09:25→21:08)
[2024-08-04] MEDS: MUCINEX 1200 MG PO ×2 (09:25→21:10)
[2024-08-04] MEDS: BUSPAR 10 MG PO ×3 (09:26→23:18)
[2024-08-04] MEDS: HEPARIN 5000 UNITS SC ×3 (09:26→23:18)
[2024-08-04] MEDS: DELTASONE 40 MG PO (09:26)
--- NOTE | 2024-08-04 09:43 | CM ---
Patient with Hx asthma with Dx Acute asthma exacerbation, pneumonia. O2 12L midflow. Receiving IV Abx, prednisone. Per nurse; OOB chair by self.
Plan watch for respiratory needs at d/c.
Plan home.
[2024-08-04] MEDS: ZITHROMAX INFUSION 250 IV (12:40)
--- NOTE | 2024-08-04 14:14 | W.PN.HOSP.TC ---
Today's Communication/Plan
-
wean O2
continue PO steroids
continue IV abx
follow pulm recs
Assessment / Plan
Assessment / Plan
Assessment:
Acute hypoxic respiratory failure
- originally on Hi-Catarino, now on mid-flow (15L now to 12L)
- wean as able
- pulm following
Acute asthma exacerbation
- transitioned to PO steroids today
- nebs QID and prn
- steroid inhalers BID
- continue Singulair
- OP Pulm f/u
Multifocal pneumonia mild mediastinal and hilar lymphadenopathy likely reactive
- Flu/Covid negative
- continue Rocephin/Azithromycin, day 4 for CAP coverage
Probable KAREN
- OP sleep study
Anxiety/Depression - continue home meds
DVT ppx: SC Heparin
Code: Full
Anticipated Discharge: > 48 hours
Subjective/Interval History
-
Date of Service: August 04, 2024
no new complaints on 12L down from 15L
Objective Data
-
Labs:
Laboratory Results
08/04/24
05:31
WBC 10.1
Hgb 13.7
Hct 39.9
Plt Count 239
Sodium 141
Potassium 4.0
Chloride 109 H
Carbon Dioxide 25
BUN 17
Creatinine 0.7
Glucose 88
Calcium 9.1
Vital Signs:
Vital Signs
Temp Pulse Resp BP Pulse Ox
97.8 F 71 21 118/70 93
08/04/24 10:55 08/04/24 12:00 08/04/24 12:00 08/04/24 12:00 08/04/24 12:00
I&O
08/03/24 08/04/24 08/05/24
06:59 06:59 06:59
Intake Total 1450 / 1450 720 / 720 250 / 250
Output Total 550 / 550
Balance 1450 / 1450 170 / 170 250 / 250
Physical Exam
-
General: No Apparent Distress
HEENT: Normocephalic and Atraumatic
Respiratory: Negative Wheezes
Cardiac: Regular Rhythm and S1/S2
GI: Soft
Genito-urinary: No Costovertebral Tender
Neuro: AO x 3
Psych: Calm
Data Reviewed
-
Total Time Spent with Patient (in minutes): 42
Labs: Labs Reviewed by me
--- NOTE | 2024-08-04 14:18 | W.PN.PUL3 ---
Today's Communication / Plan
-
- Sit in chair as tolerated
- Increase activity as tolerated
- Wean oxygen down as able
- Anticipate discharge over next 24 to 48 hours once oxygen requirement further down
Assessment
-
Patient is a 23-year-old female with known history of asthma who had presented to the hospital with cough and shortness of breath going on for almost 1 week. Patient does report some sick contacts with upper respiratory tract symptoms. Her
symptoms started with some sore throat and later progressed to cough and wheezing. She also had some posttussive vomiting. Patient at home takes albuterol as needed and Singulair and she has been using albuterol frequently without much improvement.
Patient reports known history of asthma since childhood. Typical triggers appear to be nighttime, cold weather, exposure to pollen and other animals 4. Patient used to be on Advair in the past and lately has not been on any inhaled corticosteroid
and uses montelukast at night and as needed albuterol only.
#1. Acute asthma exacerbation.
- Appears to have high Th2 asthma with elevated eosinophil count noted in the past. Eosinophil count, 0-600. Patient has not been on any inhaled corticosteroid at home lately
- Continue DuoNeb 4 times daily scheduled, continue budesonide nebulized twice daily. Continue prednisone 40 mg daily.
- Continue montelukast. Patient will need to be discharged on inhaled corticosteroid to prevent future flare.
- Recommend outpatient follow-up with pulmonary clinic for further workup and management.
#2. Multifocal nodular opacities with some groundglass changes, suspect multifocal pneumonia
- Influenza A, B, COVID-19 screen negative.
- Also noted mild mediastinal and hilar lymphadenopathy again likely reactive
- Follow-up on cultures, continue ceftriaxone and azithromycin for community-acquired pneumonia
- In view of vomiting earlier, these CT changes could be suggestive of aspiration also.
#3. Acute hypoxic respiratory failure.
- Secondary to above
- Decreasing oxygen requirement, off high flow nasal cannula now. Currently on mid flow at about 10 L, saturating 93%.
- Pulmonary embolism ruled out
- Continue to wean oxygen, keep saturations above 90%
#4. High pretest probability of underlying obstructive sleep apnea.
- Patient's BMI is 51, reported snoring at night and excessive fatigue during daytime.
- Will pursue outpatient sleep study for further evaluation
DVT prophylaxis, subcu heparin.
Total time spent on this consultation/encounter __44_ minutes which includes review of history, physical exam, medications, laboratory data, personal review of imaging, extensive review of outpatient records, discussion with care team and
respiratory therapy.
Data:
CT Chest 07/2024: No findings to suggest pulmonary emboli within the main, right greater than left main pulmonary arteries.
At least in part as a result of some respiration/motion artifact, evaluation of the more peripheral pulmonary arterial branches, particularly in the lower lobes limited and small more peripheral pulmonary emboli cannot be excluded.
Overall prominent pulmonary interstitium with nodular opacities as well as some bilateral minor groundglass opacities most likely inflammatory/infectious.
Mild indeterminate mediastinal and bilateral hilar lymphadenopathy, most prominent left hilum.
No pneumothorax or pleural effusion.
Cannot exclude small anterior pericardial effusion.
Subjective Data
-
Date of Service:
Date of Service: August 04, 2024
Subjective:
Patient comfortably lying in bed in no acute distress, reports overall feeling better.
Review of Systems
Genitourinary: Other (No new symptoms reported.)
Objective Data
Data Reviewed
Vital Signs / I&O / Oxygen:
Vital Signs
Temp Pulse Resp BP Pulse Ox
97.8 F 71 21 118/70 93
08/04/24 10:55 08/04/24 12:00 08/04/24 12:00 08/04/24 12:00 08/04/24 12:00
Intake and Output
08/03/24 08/04/24 08/05/24
06:59 06:59 06:59
Intake Total 1450 / 1450 720 / 720 250 / 250
Output Total 550 / 550
Balance 1450 / 1450 170 / 170 250 / 250
SaO2 93
Nasal Cannula flow liters per 12
minute
Physical Exam
General: Comfortable
HEENT: Normocephalic
Cardiovascular: S1-S2
Respiratory: Clear and Wheeze (Wheezing resolved)
GI: Soft and Non Distended
Neurology: Awake and Alert
Skin: Warm
Labs/Micro/Reports
Lab Data
08/04/24 05:31
08/04/24 05:31
Microbiology
08/01/24 09:40 Nasal Swab Influenza Types A & B (ROYA) - Final
Negative for Influenza A & B, NAAT
Negative results must be combined with clinical observations
and patient history.
Nucleic Acid Amplification test (NAAT)performed on the
[employer] platform.
[2024-08-04] MEDS: STERILE WATER FOR INJECTION 10 ML IV (17:12)
[2024-08-04] MEDS: ROCEPHIN 1000 MG IV (17:12)
--- NOTE | 2024-08-04 17:30 | PTCARENOTE ---
Pt takes control at [address] Zamorano to change it
[2024-08-04] MEDS: NON-FORMULARY ITEM 1 TABLET PO (21:11)
[2024-08-04] MEDS: SINGULAIR 10 MG PO (23:18)
--- NOTE | 2024-08-04 23:34 | PTCARENOTE ---
Pt received from dwight RN. Pt AAOx3, using call light appropriately. NSR on monitor. satting 92% on 12L midflow.pt took HS pills whole with water. using BSC. assessment as documented. call light within reach.
[2024-08-05] VITALS (10 sets, daily range): BP systolic 108–136; BP diastolic 53–92
[2024-08-05] MEDS: DUONEB 3 ML INH ×4 (01:49→14:22)
[2024-08-05 06:23] LABS: Hemoglobin 13.4 g/dL (12.0-16.0); Mean Corp Hgb Conc. 33.5 g/dL (33.0-37.0); Mean Corpuscular Hgb 29.1 pg (27.0-31.0); Mean Corpuscular Volume 86.8 fL (81.0-99.0); Mean Platelet Volume 8.9 fL (7.4-10.4); Platelet Count 241 10^3/uL (130-400); Red Blood Cell Count 4.61 10^6/uL (4.20-5.40); Red Cell Dist. Width 12.5 % (11.5-14.5); White Blood Cell Count 8.4 10^3/uL (4.8-10.8)
[2024-08-05 06:46] LABS: Blood Urea Nitrogen 14 mg/dl (7-17); Calcium 8.9 mg/dl (8.4-10.2); Carbon Dioxide 25 mmol/L (22-30); Chloride 110 mmol/L (98-107); Estimated Creatinine Clearance > 125 ml/min; Glucose 85 mg/dl (70-99); Potassium 3.9 mmol/L (3.5-5.1); Sodium 140 mmol/L (135-145); eGFR > 60.00
[2024-08-05] MEDS: PULMICORT 0.5 MG INH ×2 (07:17→19:31)
[2024-08-05] MEDS: MUCINEX 1200 MG PO ×2 (08:15→19:49)
[2024-08-05] MEDS: DELTASONE 40 MG PO (08:15)
[2024-08-05] MEDS: BUSPAR 10 MG PO ×3 (08:15→21:02)
[2024-08-05] MEDS: SENOKOT 8.6 MG PO ×2 (08:15→19:49)
[2024-08-05] MEDS: HEPARIN 5000 UNITS SC ×3 (08:16→23:18)
[2024-08-05] MEDS: PROZAC 40 MG PO (08:16)
[2024-08-05] MEDS: ZITHROMAX 500 MG PO (12:02)
--- NOTE | 2024-08-05 12:39 | W.PN.PUL3 ---
Today's Communication / Plan
-
- Continue to wean oxygen as tolerated, increase activity
- Can transfer out of IMU to Med-Surg floor
- Anticipate discharge over next 24 hours
Assessment
-
Patient is a 23-year-old female with known history of asthma who had presented to the hospital with cough and shortness of breath going on for almost 1 week. Patient does report some sick contacts with upper respiratory tract symptoms. Her
symptoms started with some sore throat and later progressed to cough and wheezing. She also had some posttussive vomiting. Patient at home takes albuterol as needed and Singulair and she has been using albuterol frequently without much improvement.
Patient reports known history of asthma since childhood. Typical triggers appear to be nighttime, cold weather, exposure to pollen and other animals 4. Patient used to be on Advair in the past and lately has not been on any inhaled corticosteroid
and uses montelukast at night and as needed albuterol only.
#1. Acute asthma exacerbation.
- Appears to have high Th2 asthma with elevated eosinophil count noted in the past. Eosinophil count, 0-600. Patient has not been on any inhaled corticosteroid at home lately
- Continue DuoNeb 4 times daily scheduled, continue budesonide nebulized twice daily. Continue prednisone 40 mg daily.
- Continue montelukast. Patient will need to be discharged on inhaled corticosteroid to prevent future flare.
- Recommend outpatient follow-up with pulmonary clinic for further workup and management.
#2. Multifocal nodular opacities with some groundglass changes, suspect multifocal pneumonia
- Influenza A, B, COVID-19 screen negative.
- Also noted mild mediastinal and hilar lymphadenopathy again likely reactive
- Follow-up on cultures, continue ceftriaxone and azithromycin for community-acquired pneumonia. WBC count normal, afebrile.
- In view of vomiting earlier, these CT changes could be suggestive of aspiration also.
#3. Acute hypoxic respiratory failure.
- Secondary to above
- Decreasing oxygen requirement, off high flow nasal cannula now. Off mid flow, currently down to 6 L supplemental oxygen saturating 94%
- Pulmonary embolism ruled out
- Continue to wean oxygen, keep saturations above 90%
#4. High pretest probability of underlying obstructive sleep apnea.
- Patient's BMI is 51, reported snoring at night and excessive fatigue during daytime.
- Will pursue outpatient sleep study for further evaluation
DVT prophylaxis, subcu heparin.
Total time spent on this consultation/encounter _38_ minutes which includes review of history, physical exam, medications, laboratory data, personal review of imaging, extensive review of outpatient records, discussion with care team and respiratory
therapy.
Data:
CT Chest 07/2024: No findings to suggest pulmonary emboli within the main, right greater than left main pulmonary arteries.
At least in part as a result of some respiration/motion artifact, evaluation of the more peripheral pulmonary arterial branches, particularly in the lower lobes limited and small more peripheral pulmonary emboli cannot be excluded.
Overall prominent pulmonary interstitium with nodular opacities as well as some bilateral minor groundglass opacities most likely inflammatory/infectious.
Mild indeterminate mediastinal and bilateral hilar lymphadenopathy, most prominent left hilum.
No pneumothorax or pleural effusion.
Cannot exclude small anterior pericardial effusion.
Subjective Data
-
Date of Service:
Date of Service: August 05, 2024
Subjective:
Patient continues to gradually improve
Review of Systems
Genitourinary: Other (All 14 systems reviewed and negative except as stated above in the history of present illness.)
Objective Data
Data Reviewed
Vital Signs / I&O / Oxygen:
Vital Signs
Temp Pulse Resp BP Pulse Ox
97.6 F 90 18 118/70 92
08/05/24 11:48 08/05/24 11:09 08/05/24 11:09 08/05/24 10:26 08/05/24 11:09
Intake and Output
08/04/24 08/05/24 08/06/24
06:59 06:59 06:59
Intake Total 720 / 720 730 / 730
Output Total 550 / 550 600 / 600 300 / 300
Balance 170 / 170 130 / 130 -300 / -300
SaO2 92
Nasal Cannula flow liters per 6
minute
Physical Exam
General: Comfortable
HEENT: Normocephalic
Cardiovascular: S1-S2
Respiratory: Clear and Wheeze (Wheezing resolved)
GI: Soft and Non Distended
Neurology: Awake and Alert
Skin: Warm
Labs/Micro/Reports
Lab Data
08/05/24 06:07
08/05/24 06:07
--- NOTE | 2024-08-05 13:17 | PTCARENOTE ---
Report called to 4 joel RN. Pt transported to room 417 with occupational therapy asst on.
--- NOTE | 2024-08-05 17:16 | W.PN.HOSP.TC ---
Today's Communication/Plan
-
wean O2 further
Assessment / Plan
Assessment / Plan
Assessment:
Acute hypoxic respiratory failure
- originally on Hi-Catarino, now on mid-flow (15L now to 6L)
- wean as able
- pulm following
Acute asthma exacerbation
- continue PO steroids; taper at discharge
- nebs QID and prn
- steroid inhalers BID
- continue Singulair
- OP Pulm f/u
Multifocal pneumonia mild mediastinal and hilar lymphadenopathy likely reactive
- Flu/Covid negative
- continue Rocephin/Azithromycin, day 5 for CAP coverage
Probable KAREN
- OP sleep study
Anxiety/Depression - continue home meds
DVT ppx: SC Heparin
Code: Full
Anticipated Discharge: 24 - 48 hours
Subjective/Interval History
-
Date of Service: August 05, 2024
continues slow improvement
on 6L
Objective Data
-
Labs:
Laboratory Results
08/05/24
06:07
WBC 8.4
Hgb 13.4
Hct 40.0
Plt Count 241
Sodium 140
Potassium 3.9
Chloride 110 H
Carbon Dioxide 25
BUN 14
Creatinine 0.7
Glucose 85
Calcium 8.9
Vital Signs:
Vital Signs
Temp Pulse Resp BP Pulse Ox
97.9 F 85 16 130/80 94
08/05/24 15:20 08/05/24 15:20 08/05/24 15:20 08/05/24 15:20 08/05/24 15:20
I&O
08/04/24 08/05/24 08/06/24
06:59 06:59 06:59
Intake Total 720 / 720 730 / 730
Output Total 550 / 550 600 / 600 300 / 300
Balance 170 / 170 130 / 130 -300 / -300
Physical Exam
-
General: No Apparent Distress
HEENT: Normocephalic and Atraumatic
Respiratory: Negative Wheezes
Cardiac: Regular Rhythm and S1/S2
GI: Soft and Nontender
Neuro: AO x 3
Psych: Calm
Data Reviewed
-
Total Time Spent with Patient (in minutes): 45
Labs: Labs Reviewed by me
[2024-08-05] MEDS: STERILE WATER FOR INJECTION IV (17:28)
[2024-08-05] MEDS: SINGULAIR 10 MG PO (21:02)
[2024-08-05] MEDS: NON-FORMULARY ITEM PO (21:02)
[2024-08-06 07:00] VITALS: BP 132/83
[2024-08-06] MEDS: PULMICORT 0.5 MG INH ×2 (07:25→20:06)
[2024-08-06] MEDS: DUONEB 3 ML INH ×2 (07:25→20:06)
[2024-08-06 08:39] VITALS: BP 132/83
[2024-08-06] MEDS: HEPARIN 5000 UNITS SC ×2 (08:43→15:39)
[2024-08-06] MEDS: MUCINEX 1200 MG PO ×2 (08:43→20:47)
[2024-08-06] MEDS: PROZAC 40 MG PO (08:44)
[2024-08-06] MEDS: DELTASONE 40 MG PO (08:44)
[2024-08-06] MEDS: SENOKOT 8.6 MG PO ×2 (08:45→20:47)
[2024-08-06] MEDS: BUSPAR 10 MG PO ×3 (08:45→21:01)
--- NOTE | 2024-08-06 10:20 | W.PN.HOSP.TC ---
Today's Communication/Plan
-
wean O2
home O2 testing
Assessment / Plan
Assessment / Plan
Assessment:
Acute hypoxic respiratory failure
- originally on Hi-Catarino, now on mid-flow (15L now to 4L)
- wean as able
- home O2 testing today
- pulm following
Acute asthma exacerbation
- continue PO steroids; taper at discharge
- nebs QID and prn
- steroid inhalers BID
- continue Singulair
- OP Pulm f/u
Multifocal pneumonia mild mediastinal and hilar lymphadenopathy likely reactive
- Flu/Covid negative
- s/p 5 days Rocephin/Azithromycin for CAP coverage
Probable KAREN
- OP sleep study
Anxiety/Depression - continue home meds
DVT ppx: SC Heparin
Code: Full
Anticipated Discharge: Within 24 hours
Subjective/Interval History
-
Date of Service: August 06, 2024
resting comfortably
on 4L NC
Objective Data
-
Vital Signs:
Vital Signs
Temp Pulse Resp BP Pulse Ox
98.1 F 92 16 132/83 95
08/06/24 07:00 08/06/24 07:27 08/06/24 07:27 08/06/24 07:00 08/06/24 07:27
I&O
08/05/24 08/06/24 08/07/24
06:59 06:59 06:59
Intake Total 730 / 730 480 / 480
Output Total 600 / 600 300 / 300
Balance 130 / 130 180 / 180
Physical Exam
-
General: No Apparent Distress
HEENT: Normocephalic and Atraumatic
Respiratory: Negative Wheezes
Cardiac: Regular Rhythm and S1/S2
GI: Soft and Nontender
Musculoskeletal: No Edema
Neuro: AO x 3
Psych: Calm
Data Reviewed
-
Total Time Spent with Patient (in minutes): 42
Labs: Labs Reviewed by me
--- NOTE | 2024-08-06 12:28 | W.PN.PUL3 ---
Today's Communication / Plan
-
- At discharge, recommend starting Advair 50 x 500 twice a day, Montelukast 10 mg nightly, prednisone 40 mg for 4 days followed by 30 for 4 days followed by 20 for 4 days and then 10 for 4 days, as needed albuterol MDI as well as nebulizer.
- Will arrange outpatient follow-up with pulmonary clinic
- Pulmonary service will sign off, please call as needed
Assessment
-
Patient is a 23-year-old female with known history of asthma who had presented to the hospital with cough and shortness of breath going on for almost 1 week. Patient does report some sick contacts with upper respiratory tract symptoms. Her
symptoms started with some sore throat and later progressed to cough and wheezing. She also had some posttussive vomiting. Patient at home takes albuterol as needed and Singulair and she has been using albuterol frequently without much improvement.
Patient reports known history of asthma since childhood. Typical triggers appear to be nighttime, cold weather, exposure to pollen and other animals 4. Patient used to be on Advair in the past and lately has not been on any inhaled corticosteroid
and uses montelukast at night and as needed albuterol only.
#1. Acute asthma exacerbation.
- Appears to have high Th2 asthma with elevated eosinophil count noted in the past. Eosinophil count, 0-600. Patient has not been on any inhaled corticosteroid at home lately
- Continue DuoNeb 4 times daily scheduled, continue budesonide nebulized twice daily. Continue prednisone 40 mg daily.
- Continue montelukast.
- Recommend outpatient follow-up with pulmonary clinic for further workup and management.
- At discharge, recommend starting Advair 50 x 500, twice a day, montelukast 10 mg nightly, prednisone 40 mg for 4 days followed by 30 for 4 days followed by 20 for 4 days and then 10 for 4 days, as needed albuterol MDI as well as nebulizer. Will
arrange outpatient follow-up with pulmonary clinic. Anticipate discharge today or tomorrow
#2. Multifocal nodular opacities with some groundglass changes, suspect multifocal pneumonia
- Influenza A, B, COVID-19 screen negative.
- Also noted mild mediastinal and hilar lymphadenopathy again likely reactive
- Follow-up on cultures, 5 days of Treatment should suffice
- In view of vomiting earlier, these CT changes could be suggestive of aspiration also.
#3. Acute hypoxic respiratory failure.
- Secondary to above
- Decreasing oxygen requirement, off high flow nasal cannula now. Off mid flow, currently on nasal cannula.
- Pulmonary embolism ruled out
- Continue to wean oxygen, keep saturations above 90%
#4. High pretest probability of underlying obstructive sleep apnea.
- Patient's BMI is 51, reported snoring at night and excessive fatigue during daytime.
- Will pursue outpatient sleep study for further evaluation
DVT prophylaxis, subcu heparin.
Total time spent on this consultation/encounter _38_ minutes which includes review of history, physical exam, medications, laboratory data, personal review of imaging, extensive review of outpatient records, discussion with care team and respiratory
therapy.
Data:
CT Chest 07/2024: No findings to suggest pulmonary emboli within the main, right greater than left main pulmonary arteries.
At least in part as a result of some respiration/motion artifact, evaluation of the more peripheral pulmonary arterial branches, particularly in the lower lobes limited and small more peripheral pulmonary emboli cannot be excluded.
Overall prominent pulmonary interstitium with nodular opacities as well as some bilateral minor groundglass opacities most likely inflammatory/infectious.
Mild indeterminate mediastinal and bilateral hilar lymphadenopathy, most prominent left hilum.
No pneumothorax or pleural effusion.
Cannot exclude small anterior pericardial effusion.
Subjective Data
-
Date of Service:
Date of Service: August 06, 2024
Subjective:
Patient comfortably sitting in bed and later also noted walking in the hallway. Overall gradually improving.
Review of Systems
Genitourinary: Other (No new respiratory symptoms reported.)
Objective Data
Data Reviewed
Vital Signs / I&O / Oxygen:
Vital Signs
Temp Pulse Resp BP Pulse Ox
98.1 F 92 16 132/83 93
08/06/24 07:00 08/06/24 07:27 08/06/24 07:27 08/06/24 07:00 08/06/24 11:45
Intake and Output
08/05/24 08/06/24 08/07/24
06:59 06:59 06:59
Intake Total 730 / 730 480 / 480
Output Total 600 / 600 300 / 300
Balance 130 / 130 180 / 180
SaO2 93
Nasal Cannula flow liters per 4
minute
Physical Exam
General: Comfortable
HEENT: Normocephalic
Cardiovascular: S1-S2
Respiratory: Clear and Wheeze (Minimal end expiratory wheezing noted)
GI: Soft and Non Distended
Neurology: Awake and Alert
Skin: Warm
Labs/Micro/Reports
Lab Data
08/05/24 06:07
08/05/24 06:07
--- NOTE | 2024-08-06 13:31 | CM ---
Discussed w/ hospitalist, patient will be assessed for home O2 today, will need nebulizer machine. Plan to d/c tomorrow
Home O2 assessed, patient does not require O2
Spoke w/ [employer] who stated that neb machine can be delivered to patient's home tomorrow. Script and clinicals faxed to [facility] [phone]
Will update patient
Plan: D/c home tomorrow w/ neb delivery through [facility]
[2024-08-06 15:00] VITALS: BP 136/82
[2024-08-06] MEDS: NON-FORMULARY ITEM PO (20:48)
[2024-08-06] MEDS: SINGULAIR 10 MG PO (21:01)
[2024-08-07 00:24] VITALS: BP 141/86
[2024-08-07] MEDS: HEPARIN 5000 UNITS SC ×2 (01:20→09:09)
[2024-08-07 07:00] VITALS: BP 104/65
[2024-08-07] MEDS: PULMICORT 0.5 MG INH (07:17)
[2024-08-07 08:53] VITALS: O2SAT 91; O2SAT 93
[2024-08-07] MEDS: PROZAC 40 MG PO (09:08)
[2024-08-07] MEDS: SENOKOT 8.6 MG PO (09:08)
[2024-08-07] MEDS: DELTASONE 40 MG PO (09:08)
[2024-08-07] MEDS: MUCINEX 1200 MG PO (09:09)
[2024-08-07] MEDS: BUSPAR 10 MG PO (09:09)
--- NOTE | 2024-08-07 10:41 | W.PN.HOSP.TC ---
Today's Communication/Plan
-
dc to home
Assessment / Plan
Assessment / Plan
Assessment:
Acute hypoxic respiratory failure
- originally on Hi-Catarino, now weaned to RA and home O2 assessment is fine
Acute asthma exacerbation
- continue PO steroids; taper at discharge
- Advair 500/50 at discharge
- nebs QID and prn; proair
- continue Singulair
- OP Pulm f/u in 1 month
Multifocal pneumonia mild mediastinal and hilar lymphadenopathy likely reactive
- Flu/Covid negative
- s/p 5 days Rocephin/Azithromycin for CAP coverage
Probable KAREN
- OP sleep study
Anxiety/Depression - continue home meds
DVT ppx: SC Heparin
Code: Full.
More than 30 minutes spent in discharge including
Final examination of the patient
Summarizing hospital stay
Instructions for continuing care to all relevant caregivers
Preparation of discharge records, prescriptions, and referral forms
Total time spent (in minutes): 41
Anticipated Discharge: Today
Subjective/Interval History
-
Date of Service: August 07, 2024
denies any new complaints at present
Objective Data
-
Vital Signs:
Vital Signs
Temp Pulse Resp BP Pulse Ox
98 F 65 18 104/65 93
08/07/24 00:24 08/07/24 07:19 08/07/24 07:19 08/07/24 07:00 08/07/24 08:53
I&O
08/06/24 08/07/24 08/08/24
06:59 06:59 06:59
Intake Total 480 / 480 960 / 960
Output Total 300 / 300
Balance 180 / 180 960 / 960
Physical Exam
-
General: No Apparent Distress
HEENT: Normocephalic and Atraumatic
Respiratory: Negative Wheezes
Cardiac: Regular Rhythm and S1/S2
GI: Soft and Nontender
Neuro: AO x 3
Hematologic / Lymphatic: No Lymphadenopathy
Psych: Calm
Data Reviewed
-
Total Time Spent with Patient (in minutes): 42
Labs: Labs Reviewed by me
--- NOTE | 2024-08-07 10:51 | CM ---
Patient will d/c today. Still does not require O2.
Confirmed w/ [employer] receipt of paperwork yesterday and plan to deliver patient's neb machine today. [employer] confirmed that the power truck driver will call patient when they are on their way
No other CM needs identified at this time
Plan: Home w/ nebulizer delivered by [employer]
--- NOTE | 2024-08-07 11:10 | W.DS.TRANS ---
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
-
Discharge Instructions:
Discharge Diagnosis/Procedures acute asthma exacerbation, pneumonia
Diet Regular
Activity As tolerated
Instructions:
Stand-Alone Forms:
Changes to Home Medications: No
Discharge Medications:
DC Medications w/original date entered in [employer]
bupropion HCl 300 mg 24 hr tablet, extended release 300 mg PO DAILY Mental Health/Anxiety 08/01/24
buspirone 10 mg tablet 10 mg PO TID 08/01/24
fluoxetine 40 mg capsule 40 mg PO DAILY Mental Health/Anxiety 08/01/24
norgestimate 0.25 mg-ethinyl estradiol 0.035 mg tablet (Estarylla) 1 tab PO DAILY 08/01/24
albuterol sulfate 2.5 mg/3 mL (0.083 %) solution for nebulization 2.5 mg (3 mL) inhalation Q4H PRN shortness of breath or wheezing #75 mL 08/07/24
albuterol sulfate 90 mcg/actuation aerosol inhaler 2 inh inhalation R Q4HPRN PRN sob #6.7 grams 08/07/24
fluticasone 500 mcg-salmeterol 50 mcg/dose blistr powdr for inhalation (Advair Diskus) 1 inh inhalation BID #60 ea 08/07/24
montelukast 10 mg tablet 10 mg PO DAILY Allergies #30 tabs 08/07/24
prednisone 10 mg tablet 10 mg PO DIRECTED #40 tabs 08/07/24
Home Medication Changes
Pending Results: No
Total time spent discharging patient (in min): 41
[2024-08-07 13:34] VITALS: BP 130/84
== END 2024-08-07 14:18 | disposition home or self-care (01) | DRG 193 ==
LOC: 4 WEST ACU 15:41
PROVIDERS: Emergency Medicine; Nurse Practitioner Family; Registered Nurse; ADMITTING PHYSICIAN Hospitalist; ATTENDING PHYSICIAN Internal Medicine; CONSULT PHYSICIAN Internal Medicine; EMERGENCY PHYSICIAN Emergency Medicine
DX: J18.9 Pneumonia, unspecified organism (principal); J96.01 Acute respiratory failure with hypoxia; J45.901 Unspecified asthma with (acute) exacerbation; Z68.43 Body mass index [BMI] 50.0-59.9, adult; F32.A Depression, unspecified; F41.9 Anxiety disorder, unspecified; Z79.899 Other long term (current) drug therapy; Z11.52 Encounter for screening for COVID-19
CPT/HCPCS: 71046; 71275; 80048; 80053; 83735; 84703; 85025; 85027; 85379; 87502; 87811; 93005; 94640; 94761; 96365; 96375; 99285; Q9967